=== PATIENT | female | born 1945 | race Caucasian/White ===

== ENCOUNTER 2018-08-04 10:27 | Emergency (ER) | payer OTHER, BC ==
[2018-08-04 11:01] VITALS: BP 169/83; PULSE 90; TEMP 97.8; BMI 30.2
[2018-08-04] MEDS ORDERED: DEXAMETHASONE SOD PHOSPHATE 10 MG/1 ML VIAL IM ONE (12:07)
--- NOTE | 2018-08-04 12:07 | PDOC ---
History of Present Illness - General Chief Complaint: Pain Stated Complaint: LT HIP PAIN Time Seen by Provider: 08/04/18 11:33 History Source: Patient Exam Limitations: No Limitations - History of Present Illness Initial Comments: 08/04/18 11:56 CHIEF COMPLAINT: Lower back pain HISTORY OF PRESENT ILLNESS: This 72-year-old woman past medical history of diabetes and multiple slipped disc in the lumbar spine who presents emergency department for evaluation of left-sided lower back pain radiating down the backside of her left leg. Patient reports the pain started on Wednesday if she took a long walk on Wednesday afternoon. Patient was taken prescriptions that were given to her by her neurologist for the back pain which have been ineffective. Patient reports in addition to taking the Robaxin and meloxicam she has added Aleve and Motrin to her medication regimen for the past 2 days. Patient attempted to call Dr. Goyal's office today for evaluation of her back pain but he is out of the office this week. Patient denies any incontinence of bladder or bowel, urinary retention, saddle anesthesia, foot drop, history of IV drug use or cancer. REVIEW OF SYSTEMS: GENERAL: Afebrile, denies any weakness RESPIRATORY: No cough, wheezing, or hemoptysis. CARDIAC: No chest pain or shortness of breath MUSCULOSKELETAL: Pain to generalized lower back. No point tenderness. Pain worse on left than right. SKIN : No erythema, no bruising, no deformity. GI/: Denies any abdominal pain, no urinary difficulty, incontinence or urinary retention. RECTAL: Denies any difficulty this A.m. NEUROLOGICAL: Denies any numbness or tingling. No neurosensory deficits. PHYSICAL EXAM: GENERAL: The patient is awake, alert, and fully oriented, in no acute distress. RESPIRATORY: Lungs clear bilaterally, no rhonchi wheezes or crackles CARDIAC: S1-S2 audible, no murmur rub or gallop MUSCULOSKELETAL: Pain to generalized lower back, nonradiating, no tingling or sensory deficit. Less than 2 second cap refill, +2 pedal pulses. No spinal point tenderness. Normal reflexive and no deficits to sensation or strength. GI/: Abdomen soft, nontender, nondistended. No rebound tenderness. No masses palpable. RECTAL: Deferred patient with no neurological findings SKIN: Warm, Dry, normal turgor, no erythema, no edema no bruising. Past History - Past Medical History Allergies/Adverse Reactions: Allergies Allergy/AdvReac Type Severity Reaction Status Date / Time No Known Allergies Allergy Verified 03/07/16 16:33 Home Medications: Ambulatory Orders Aspirin [ASA -] 81 mg PO DAILY 12/08/15 Losartan Potassium [Cozaar -] 25 mg PO DAILY 12/08/15 Magnesium 30 mg PO ASDIR 12/08/15 metFORMIN HCL [Metformin HCl] 500 mg PO BID 12/08/15 Cyclobenzaprine HCl [Flexeril -] 5 mg PO TID #20 tablet 12/14/15 Diclofenac Sodium [Voltaren -] 75 mg PO BID #60 tablet. 12/14/15 Docusate Sodium [Colace -] 300 mg PO HS capsule 12/14/15 Losartan Potassium [Cozaar -] 25 mg PO DAILY tablet 12/14/15 metFORMIN HCL [Glucophage -] 500 mg PO BIDAC tablet 12/14/15 Meclizine HCl 25 mg PO QID PRN #12 tablet 03/07/16 COPD: No Diabetes: Yes (TYPE II) HTN: Yes Hypercholesterolemia: Yes - Immunization History Immunization Up to Date: No - Suicide/Smoking/Psychosocial Hx Smoking History: Current every day smoker Have you smoked in the past 12 months: Yes Number of Cigarettes Smoked Daily: 10 Information on smoking cessation initiated: No 'Breaking Loose' booklet given: 12/08/15 Hx Alcohol Use: No Drug/Substance Use Hx: No Substance Use Type: None *Physical Exam - Vital Signs Last Vital Signs Temp Pulse Resp BP Pulse Ox 97.8 F 90 17 169/83 95 08/04/18 10:57 08/04/18 10:57 08/04/18 10:57 08/04/18 10:57 08/04/18 10:57 Medical Decision Making - Medical Decision Making 08/04/18 12:08 A/P: 72-year-old lady with acute on chronic lower back pain Given normal physical exam this is likely radiculopathy from chronic slipped disks This patient has had no relief with multiple NSAID pain relievers and methocarbamol I'll treat the patient with Decadron 10 mg IM now and will contact Dr. Bazan's office for any potential further intervention. 08/04/18 12:[address] Bazan's office at this time. I'll discharge the patient home with instructions to call Dr. Bazan's office for repeat evaluation. 08/04/18 12:26 Case has been discussed with Dr. Bazan's office who will arrange an appointment for the patient. Patient is to call to schedule appointments either tomorrow or on Wednesday. I discussed the physical exam findings, ancillary test results and final diagnoses with the patient. I answered all of the patient's questions. The patient was satisfied with the care received and felt comfortable with the discharge plan and treatment plan. The patient will call their primary care physician within 24 hours to arrange follow-up and will return to the Emergency Department with any new, persistent or worsening symptoms. *DC/Admit/Observation/Transfer Diagnosis at time of Disposition: Back pain Qualifiers: Back pain location: low back pain Chronicity: chronic Back pain laterality: left Sciatica presence: with sciatica Sciatica laterality: sciatica of left side Qualified Code(s): M54.42 - Lumbago with sciatica, left side - Discharge Dispostion Disposition: HOME Condition at time of disposition: Fair Decision to Admit order: No - Referrals Referrals: Naren Hanley MD [Staff Physician] - - Patient Instructions Additional Instructions: Take Tylenol as needed for pain. Follow manufacturers instructions for appropriate dosage. Warm moist heat applied to your back may help alleviate pain. Return to emergency department for discoloration of the foot, numbness or tingling to the foot, worsening pain, or any other concerns. Thank you very much for choosing us to provide your emergent healthcare needs. call Dr. Goyal's office for reevaluation within the next 3 days. - Post Discharge Activity
[2018-08-04] MEDS ORDERED: DEXAMETHASONE SOD PHOSPHATE 10 MG/1 ML VIAL ONE (12:14)
== END 2018-08-04 12:50 | disposition home or self-care (01) ==
LOC: JERFT 10:27
PROC: 3E0233Z Introduction of Anti-inflammatory into Muscle, Percutaneous Approach (ICD-10-PCS; principal; 2018-08-04)
DX: M54.42 Lumbago with sciatica, left side (principal); I10 Essential (primary) hypertension; E78.00 Pure hypercholesterolemia, unspecified; E11.9 Type 2 diabetes mellitus without complications; Z79.84 Long term (current) use of oral hypoglycemic drugs
CPT/HCPCS: 99281-25; J1100